=== PATIENT | female | born 1960 | race African-American/Black ===

== ENCOUNTER 2018-09-17 09:50 | Emergency (ER) | payer SELFPAY ==
[~2018-09-17] VITALS: Ht 157.5 cm; Wt 48.0 kg
[2018-09-17] MEDS ORDERED: HYDROCODONE/ACETAMINOPHEN 5/325MG TABLET PO ONE (12:30)
[2018-09-17 13:14] VITALS: BP 127/79
== END 2018-09-17 14:20 | disposition home or self-care (01) ==
LOC: ER 10:39
DX: S42.252A Displaced fracture of greater tuberosity of left humerus, initial encounter for closed fracture (principal); W01.0XXA Fall on same level from slipping, tripping and stumbling without subsequent striking against object, initial encounter; Y93.89 Activity, other specified; Y92.89 Other specified places as the place of occurrence of the external cause; Y99.8 Other external cause status
CPT/HCPCS: 73030; 73060; 73070; 99283; A4565

== ENCOUNTER 2019-05-04 07:53 | Emergency (ER) | payer MEDICAID, OTHER ==
[~2019-05-04] VITALS: Ht 160 cm; Wt 48.0 kg
[2019-05-04] MEDS ORDERED: LIDOCAINE HCL/PF 1% 10 MG/ML 5ML VIAL IJ ONE (09:00)
[2019-05-04] MEDS ORDERED: BACITRACIN ZINC OINT UDPKT TOP ONE (09:00)
[2019-05-04] MEDS ORDERED: TETANUS, DIPHTHERIA, PERTUSSIS VAC/PF 0.5ML (>7YR OLD) IM ONE (09:00)
[2019-05-04 10:10] VITALS: BP 139/85
== END 2019-05-04 10:11 | disposition home or self-care (01) ==
LOC: ER 07:53
DX: S51.051A Open bite, right elbow, initial encounter (principal); Z88.0 Allergy status to penicillin; W54.0XXA Bitten by dog, initial encounter; Y93.89 Activity, other specified; Y92.89 Other specified places as the place of occurrence of the external cause; Y99.8 Other external cause status
CPT/HCPCS: 12002; 90471; 90715; 99283; J3490